=== PATIENT | female | born 1985 | race Caucasian/White ===

== ENCOUNTER → 2016-11-24 | Outpatient (CLI) | payer BC ==
--- NOTE | 2016-11-24 16:20 | CT ---
EXAMINATION TYPE: CT brain wo con DATE OF EXAM: 11/24/2016 4:10 PM COMPARISON: NONE HISTORY: 31-year-old female with headaches TECHNIQUE: Examination was done in axial plane without intravenous contrast. Coronal and sagittal reconstructio ns performed. CT DLP: 981.7 mGycm Automated exposure control for dose reduction was used. FINDINGS: There is no evidence of acute intracranial hemorrhage, acute ischemic changes, mass, mass-effect, or extra-axial fluid collection. There is no effacement of cerebral sulci or basal subarachnoid cister ns. There is no hydrocephalus. There is no midline shift. Luis-white matter distinction is preserv ed. Paranasal sinuses and mastoid air cells are well pneumatized. There is rightward nasal septal deviati on. Patient's gaze is frankly divergent. IMPRESSION: 1. No acute intracranial abnormality seen. 2. Frankly divergent gaze suggests underlying strabismus. Query as to if this could be a source of th e patient's headaches.
== END | disposition home or self-care (01) ==
LOC: RADCTMAIN 15:53
PROVIDERS: ATTEND Family Medicine
DX: R51 Headache (principal)
CPT/HCPCS: 70450

== ENCOUNTER 2017-01-23 20:13 | Emergency (ER) | payer BC ==
[2017-01-23 20:19] VITALS: TEMP 98.4
[2017-01-23] MEDS ORDERED: HYDROmorphone 1 MG/ML 1 ML SYRINGE IVP STA (20:39)
[2017-01-23] MEDS ORDERED: SODIUM CHLORIDE 0.9% 1,000 ML IV ONE (20:39)
[2017-01-23] MEDS ORDERED: ONDANSETRON 4 MG/2 ML VIAL IVP STA (20:39)
[2017-01-23 21:13] LABS: Basophils # (A) 0.1 k/uL (0-0.2); Basophils % (A) 2 %; CH 28.6; CHCM 33.7; Eosinophils # (A) 0.1 k/uL (0-0.7); Eosinophils % (A) 1 %; HCT 39.9 % (34.0-46.0); HDW 2.97; HGB 13.3 gm/dL (11.4-16.0); Luc # (Auto) 0.23; Luc % (Auto) 3; Lymphocytes # (A) 2.4 k/uL (1.0-4.8); Lymphocytes % (A) 35 %; MCH 28.3 pg (25.0-35.0); MCHC 33.2 g/dL (31.0-37.0); MCV 85.3 fL (80.0-100.0); Monocytes # (A) 0.4 k/uL (0-1.0); Monocytes % (A) 5 %; Neutrophils # (A) 3.8 k/uL (1.3-7.7); Neutrophils % (A) 54 %; RBC 4.68 m/uL (3.80-5.40); WBC (Perox) 7.37
--- NOTE | 2017-01-23 21:16 | ED ---
Female Urogenital HPI - General Chief complaint: Urogenital Stated complaint: Abd pain Time Seen by Provider: 01/23/17 20:21 Source: patient, RN notes reviewed Mode of arrival: ambulatory Limitations: no limitations - History of Present Illness Initial comments: Patient is a 31-year-old female with chief complaint of increased pelvic pain. Patient reports that she has a history of cervical cancer and had her cervix removed in July 2016. Patient reports that this was done by his physician Dr. Babb and [facility] in [place]. Patient states that after that was previously place a stent in her cervix in order for her to have a complete menstrual flow. Patient reports that a few days after her stent fell out. She states that since then her physician believes that whenever she has a menstrual cycle the blood is unable to come through the cervix and having normal menstrual cycle. Infected backs up and goes through the fallopian tubes and settles in her abdomen. Patient reports that she's had multiple CAT scans and ultrasounds. Patient states that she takes the few pain medications including tramadol and [place] and even Dilaudid. Patient states that over the past 2 days the pain has been worse and has never been this severe. Patient states that her physician plans to have a D&C completed within the next few weeks in order for her cervix to be more open for the blood supply when she does have a menstrual cycle. Patient denies any fever or chills. She denies any nausea or vomiting. She states that the pain radiates throughout her low entire lower abdomen. She does have a history of ovarian cysts as well She had a computed tomography scan last week which showed acute abnormalities. . - Related Data Home Medications Medication Instructions Recorded Confirmed Pregabalin [Lyrica] 1 tab PO DAILY 01/23/17 01/23/17 Allergies Allergy/AdvReac Type Severity Reaction Status Date / Time NSAIDS (Non-Steroidal AdvReac Abdominal Verified 01/23/17 20:19 Anti-Inflamma Pain Review of Systems ROS Statement: Those systems with pertinent positive or pertinent negative responses have been documented in the HPI. ROS Other: All systems not noted in ROS Statement are negative. Past Medical History Past Medical History: Cancer Additional Past Medical History / Comment(s): cervical cancer History of Any Multi-Drug Resistant Organisms: None Reported Additional Past Surgical History / Comment(s): cervix removed Past Psychological History: Anxiety, Depression Smoking Status: Never smoker Past Alcohol Use History: None Reported Past Drug Use History: None Reported General Exam - General Exam Comments Initial Comments: Patient is a 31-year-old female. Patient does appear to be in significant discomfort. Limitations: no limitations General appearance: alert, in no apparent distress Head exam: Present: atraumatic, normocephalic, normal inspection Eye exam: Present: normal appearance, PERRL, EOMI. Absent: scleral icterus, conjunctival injection, periorbital swelling ENT exam: Present: normal exam, mucous membranes moist Neck exam: Present: normal inspection. Absent: tenderness, meningismus, lymphadenopathy Respiratory exam: Present: normal lung sounds bilaterally. Absent: respiratory distress, wheezes, rales, rhonchi, stridor Cardiovascular Exam: Present: regular rate, normal rhythm, normal heart sounds. Absent: systolic murmur, diastolic murmur, rubs, gallop, clicks GI/Abdominal exam: Present: soft, tenderness (Diffuse lower abdominal tenderness.), normal bowel sounds. Absent: distended, guarding, rebound, rigid External exam: Present: normal external exam Speculum exam: Present: normal speculum exam, other (evidence of scar tissue over cervix. ) Extremities exam: Present: normal inspection, full ROM, normal capillary refill. Absent: tenderness, pedal edema, joint swelling, calf tenderness Back exam: Present: normal inspection Neurological exam: Present: alert, oriented X3, CN II-XII intact Psychiatric exam: Present: normal affect, normal mood Skin exam: Present: warm, dry, intact, normal color. Absent: rash Course Vital Signs 01/23/17 01/23/17 20:15 23:39 Temperature 98.4 F Pulse Rate 101 H 83 Respiratory 20 16 Rate Blood Pressure 133/94 143/73 O2 Sat by Pulse 97 98 Oximetry Medical Decision Making - Medical Decision Making Patient is a 31-year-old female with chief complaint of increased pelvic pain. Patient reports that she has a history of cervical cancer and had her cervix removed in July 2016. Patient reports that this was done by his physician Dr. Babb and [facility] in [place]. Patient states that after that was previously place a stent in her cervix in order for her to have a complete menstrual flow. Patient reports that a few days after her stent fell out. She states that since then her physician believes that whenever she has a menstrual cycle the blood is unable to come through the cervix and having normal menstrual cycle. Infected backs up and goes through the fallopian tubes and settles in her abdomen. Patient reports that she's had multiple CAT scans and ultrasounds. Patient states that she takes the few pain medications including tramadol and [place] and even Dilaudid. Patient states that over the past 2 days the pain has been worse and has never been this severe. Patient states that her physician plans to have a D&C completed within the next few weeks in order for her cervix to be more open for the blood supply when she does have a menstrual cycle. Labwork was reviewed. Patient has no evidence of any acute abnormalities. Patient transvaginal ultrasound shows no evidence of ovarian torsion. However left ovary is not visualized at this time. Patient has no significant tenderness on exam. Patient was given IV fluids and pain management. I discussed the patient needs to follow-up with her specialist. I discussed the repeating a computed tomography scan at this time with the negative lab work is not 100% necessary. I discussed the patient has had multiple CT scans and to avoid the radiation at this time. Return parameters were discussed, and I advised patient to take her pain medications that she has at home. Patient plans to call on Wednesday to schedule an appointment for the D&C and further workup from her cancer specialist. - Lab Data Result diagrams: 01/23/17 20:55 01/23/17 20:55 Lab Results 01/23/17 01/23/17 01/23/17 Range/Units 20:55 20:55 20:55 WBC 7.0 (3.8-10.6) k/uL RBC 4.68 (3.80-5.40) m/uL Hgb 13.3 (11.4-16.0) gm/dL Hct 39.9 (34.0-46.0) % MCV 85.3 (80.0-100.0) fL MCH 28.3 (25.0-35.0) pg MCHC 33.2 (31.0-37.0) g/dL RDW 14.0 (11.5-15.5) % Plt Count 309 (150-450) k/uL Neutrophils % 54 % Lymphocytes % 35 % Monocytes % 5 % Eosinophils % 1 % Basophils % 2 % Neutrophils # 3.8 (1.3-7.7) k/uL Lymphocytes # 2.4 (1.0-4.8) k/uL Monocytes # 0.4 (0-1.0) k/uL Eosinophils # 0.1 (0-0.7) k/uL Basophils # 0.1 (0-0.2) k/uL Sodium 143 (137-145) mmol/L Potassium 4.2 (3.5-5.1) mmol/L Chloride 107 (98-107) mmol/L Carbon Dioxide 26 (22-30) mmol/L Anion Gap 10 mmol/L BUN 11 (7-17) mg/dL Creatinine 0.78 (0.52-1.04) mg/dL Est GFR (MDRD) Af Amer >60 (>60 ml/min/1.73 sqM) Est GFR (MDRD) Non-Af >60 (>60 ml/min/1.73 sqM) Glucose 96 (74-99) mg/dL Calcium 9.6 (8.4-10.2) mg/dL Total Bilirubin 0.5 (0.2-1.3) mg/dL AST 9 L (14-36) U/L ALT 24 (9-52) U/L Alkaline Phosphatase 43 (38-126) U/L Total Protein 7.0 (6.3-8.2) g/dL Albumin 4.2 (3.5-5.0) g/dL Urine Color Urine Appearance (Clear) Urine pH (5.0-8.0) Ur Specific [place] (1.001-1.035) Urine Protein (Negative) Urine Glucose (UA) (Negative) Urine Ketones (Negative) Urine Blood (Negative) Urine Nitrite (Negative) Urine Bilirubin (Negative) Urine Urobilinogen (<2.0) mg/dL Ur Leukocyte Esterase (Negative) Urine RBC (0-5) /hpf Urine WBC (0-5) /hpf Ur Squamous Epith Cells (0-4) /hpf Amorphous Sediment (None) /hpf Urine Bacteria (None) /hpf Hyaline Casts (0-2) /lpf Urine Mucus (None) /hpf Urine HCG, Qual Not Detected (Not Detectd) Trichomonas Ag (Rapid) (Negative) 01/23/17 01/23/17 Range/Units 20:55 21:45 WBC (3.8-10.6) k/uL RBC (3.80-5.40) m/uL Hgb (11.4-16.0) gm/dL Hct (34.0-46.0) % MCV (80.0-100.0) fL MCH (25.0-35.0) pg MCHC (31.0-37.0) g/dL RDW (11.5-15.5) % Plt Count (150-450) k/uL Neutrophils % % Lymphocytes % % Monocytes % % Eosinophils % % Basophils % % Neutrophils # (1.3-7.7) k/uL Lymphocytes # (1.0-4.8) k/uL Monocytes # (0-1.0) k/uL Eosinophils # (0-0.7) k/uL Basophils # (0-0.2) k/uL Sodium (137-145) mmol/L Potassium (3.5-5.1) mmol/L Chloride (98-107) mmol/L Carbon Dioxide (22-30) mmol/L Anion Gap mmol/L BUN (7-17) mg/dL Creatinine (0.52-1.04) mg/dL Est GFR (MDRD) Af Amer (>60 ml/min/1.73 sqM) Est GFR (MDRD) Non-Af (>60 ml/min/1.73 sqM) Glucose (74-99) mg/dL Calcium (8.4-10.2) mg/dL Total Bilirubin (0.2-1.3) mg/dL AST (14-36) U/L ALT (9-52) U/L Alkaline Phosphatase (38-126) U/L Total Protein (6.3-8.2) g/dL Albumin (3.5-5.0) g/dL Urine Color Yellow Urine Appearance Cloudy H (Clear) Urine pH 5.5 (5.0-8.0) Ur Specific [place] 1.012 (1.001-1.035) Urine Protein Negative (Negative) Urine Glucose (UA) Negative (Negative) Urine Ketones Negative (Negative) Urine Blood Small H (Negative) Urine Nitrite Negative (Negative) Urine Bilirubin Negative (Negative) Urine Urobilinogen <2.0 (<2.0) mg/dL Ur Leukocyte Esterase Trace H (Negative) Urine RBC 1 (0-5) /hpf Urine WBC 7 H (0-5) /hpf Ur Squamous Epith Cells 21 H (0-4) /hpf Amorphous Sediment Occasional H (None) /hpf Urine Bacteria Many H (None) /hpf Hyaline Casts 2 (0-2) /lpf Urine Mucus Occasional H (None) /hpf Urine HCG, Qual (Not Detectd) Trichomonas Ag (Rapid) Negative (Negative) - Radiology Data Radiology results: report reviewed Impression is surgical absence of the cervix. Otherwise unremarkable appearance of uterus and endometrium. Normal right ovary. Left ovary is not visualized. Disposition Clinical Impression: Abdominal pain Disposition: HOME SELF-CARE Condition: Good Instructions: Abdominal Pain (ED) Additional Instructions: Follow-up with specialist on Wednesday. Return to the emergency department if any alarming signs or symptoms occur. Take at home pain medication. Referrals: Destinee Vickers DO [Primary Care Provider] - 1-2 days Time of Disposition: 00:18
[2017-01-23 21:20] LABS: Amorphous Sediment,Urine Occasional /hpf; Appearance,Urine Cloudy (Clear); Bacteria,Urine Many /hpf; Bilirubin,Urine Negative (Negative); Glucose,Urine (UA) Negative (Negative); Ketones,Urine Negative (Negative); Leukocyte Esterase,Urine Trace (Negative); Mucus,Urine Occasional /hpf; Nitrite,Urine Negative (Negative); PH, Urine 5.5 (5.0-8.0); Particle Count 5575; Protein,Urine Negative (Negative); RBC,Urine 1 /hpf (0-5); Specific Gravity,Urine 1.012 (1.001-1.035); Squamous Epithelial Cell,Urine 21 /hpf (0-4); UA Billing (MACRO vs. MICRO) MICRO; Urobilinogen,Urine <2.0 mg/dL (<2.0); WBC,Urine 7 /hpf (0-5)
[2017-01-23 21:28] LABS: ALT 24 U/L (9-52); AST 9 U/L (14-36); Alkaline Phosphatase 43 U/L (38-126); Anion Gap 10 mmol/L; Blood Urea Nitrogen 11 mg/dL (7-17); Calcium 9.6 mg/dL (8.4-10.2); Carbon Dioxide 26 mmol/L (22-30); Chloride 107 mmol/L (98-107); Glucose 96 mg/dL (74-99); Non-African American GFR(MDRD) >60 (>60 ml/min/1.73 sqM); Potassium 4.2 mmol/L (3.5-5.1); Sodium 143 mmol/L (137-145); Total Bilirubin 0.5 mg/dL (0.2-1.3)
[2017-01-23 23:40] VITALS: BP 143/73; PULSE 83; RESP 16
--- NOTE | 2017-01-23 23:42 | US ---
EXAM: US Pelvis Complete, Transabdominal. US Pelvis, Transvaginal. CLINICAL HISTORY: Reason: Hx of cervical cancer, cervix removed in July 2016, cerclage with stent put in at that time, patients states stent fell out, no menses since surgery, only intermittant spotting. Currently patient having pelvic pain TECHNIQUE: Real-time transabdominal and transvaginal pelvic ultrasound (complete) with image documentation. Transvaginal imaging was used for better evaluation of the endometrium and adnexa. COMPARISON: None FINDINGS: Uterus: Retroverted uterus with surgically absent cervix. Measures 4.0 x 3.6 x 3.9 cm. Endometrium measures 4 mm. Right ovary: Measures 3.6 x 2.0 x 2.3 cm. Normal appearance with multiple follicles and normal color Doppler flow. Left ovary: Not visualized, likely obscured by overlying bowel gas. Other: No free fluid. IMPRESSION: Surgical absence of the cervix. Otherwise unremarkable appearance of the uterus and endometrium. Normal right ovary. Left ovary not visualized.
[2017-01-24] MEDS ORDERED: HYDROmorphone 1 MG/ML 1 ML SYRINGE IVP STA (00:17)
[2017-01-24] MEDS ORDERED: METOCLOPRAMIDE 5 MG/ML 2 ML VIAL IVP STA (00:18)
[2017-01-25 10:00] LABS: Chlamydia/GC Source Vaginal
== END 2017-01-24 00:40 | disposition home or self-care (01) ==
LOC: EC 20:13
DX: R10.9 Unspecified abdominal pain (principal); Z85.41 Personal history of malignant neoplasm of cervix uteri; Z90.712 Acquired absence of cervix with remaining uterus; Z79.899 Other long term (current) drug therapy
CPT/HCPCS: 36415; 80053; 87591; 87491; 85025; 81001; 81025; 87808; 87070; 93976; 76856; 76830; 99284; 96374 ×2; 96375 ×2; J2765; J2405; J1170 ×2; 87205

== ENCOUNTER 2017-12-19 13:21 | Emergency (ER) | payer BC ==
[2017-12-19 13:27] VITALS: BP 124/88; PULSE 88; RESP 16; TEMP 98.4
--- NOTE | 2017-12-19 13:58 | XR ---
EXAMINATION TYPE: XR foot complete RT , 3 VIEWS DATE OF EXAM ORDERED: 12/19/2017 HISTORY: Pain following trauma. COMPARISON: None. FINDINGS: No fracture, dislocation or other acute osseous lesion is seen. There is a small Achilles spur seen arising from the calcaneus. IMPRESSION: NO ACUTE OSSEOUS LESION.
--- NOTE | 2017-12-19 14:01 | ED ---
Lower Extremity Injury HPI - General Chief Complaint: Extremity Injury, Lower Stated Complaint: Toe Injury Time Seen by Provider: 12/19/17 13:37 Source: patient, RN notes reviewed Mode of arrival: ambulatory Limitations: no limitations - History of Present Illness Initial Comments: 32-year-old female presented emergency from chief complaint of right foot first digit injury. She states that she was going up steps states that she kicked a step and fell forward. She does admit to some bruising to her hansen and knee but states it is not painful on like her right first digit. She states is very swollen, bruised. Patient states the pain is worse with induration better at rest. - Related Data Home Medications Medication Instructions Recorded Confirmed Pregabalin [Lyrica] 1 tab PO DAILY 01/23/17 01/23/17 Previous Rx's Medication Instructions Recorded Acetaminophen-Codeine 300-30mg 1 tab PO Q4H PRN #20 tablet 12/19/17 [Tylenol #3] Allergies Allergy/AdvReac Type Severity Reaction Status Date / Time NSAIDS (Non-Steroidal AdvReac Abdominal Verified 12/19/17 13:27 Anti-Inflamma Pain Review of Systems ROS Statement: Those systems with pertinent positive or pertinent negative responses have been documented in the HPI. ROS Other: All systems not noted in ROS Statement are negative. Past Medical History Past Medical History: Cancer, Thyroid Disorder Additional Past Medical History / Comment(s): cervical cancer History of Any Multi-Drug Resistant Organisms: None Reported Additional Past Surgical History / Comment(s): cervix removed, parathyroid Past Psychological History: Anxiety, Depression Smoking Status: Never smoker Past Alcohol Use History: None Reported Past Drug Use History: None Reported General Exam Limitations: no limitations General appearance: alert, in no apparent distress Respiratory exam: Present: normal lung sounds bilaterally. Absent: respiratory distress, wheezes, rales, rhonchi, stridor Cardiovascular Exam: Present: regular rate, normal rhythm, normal heart sounds. Absent: systolic murmur, diastolic murmur, rubs, gallop, clicks Extremities exam: Present: other (Right foot first digit there is a moderate amount of edema and ecchymosis noted there is tenderness towards the distal phalanx there is no tenderness of MTP region or over the metatarsals, neurovascular intact) Course Vital Signs 12/19/17 13:23 Temperature 98.4 F Pulse Rate 88 Respiratory 16 Rate Blood Pressure 124/88 O2 Sat by Pulse 96 Oximetry Medical Decision Making - Medical Decision Making 32-year-old female presented for right foot injury. Patient has a fracture of her first digit, she'll be discharged at this time with pain medication and follow-up with her primary care physician or orthopedics as needed. Disposition Clinical Impression: Fracture of toe of right foot Disposition: HOME SELF-CARE Condition: Stable Instructions: Toe Fracture (ED) Additional Instructions: Please return to the Emergency Department if symptoms worsen or any other concerns. Prescriptions: Acetaminophen-Codeine 300-30mg [Tylenol #3] 1 tab PO Q4H PRN #20 tablet PRN Reason: pain Referrals: Destinee Vickers DO [Primary Care Provider] - 1-2 days Simeon Parisi MD [STAFF PHYSICIAN] - 1-2 days Time of Disposition: 14:00
== END 2017-12-19 14:34 | disposition home or self-care (01) ==
LOC: EC 13:21
DX: S92.401A Displaced unspecified fracture of right great toe, initial encounter for closed fracture (principal); S80.01XA Contusion of right knee, initial encounter; S80.11XA Contusion of right lower leg, initial encounter; F41.9 Anxiety disorder, unspecified; Z85.41 Personal history of malignant neoplasm of cervix uteri; Z79.899 Other long term (current) drug therapy; Z88.6 Allergy status to analgesic agent; W18.31XA Fall on same level due to stepping on an object, initial encounter; Y92.009 Unspecified place in unspecified non-institutional (private) residence as the place of occurrence of the external cause
CPT/HCPCS: 99283

== ENCOUNTER 2018-05-22 20:27 | Emergency (ER) | payer BC ==
[2018-05-22 20:44] VITALS: BP 118/79; PULSE 72; RESP 18; TEMP 98.9
--- NOTE | 2018-05-22 20:53 | ED ---
Lower Extremity Injury HPI - General Chief Complaint: Extremity Injury, Lower Stated Complaint: Fell/ Foot Injury Time Seen by Provider: 05/22/18 20:46 Source: patient, RN notes reviewed Mode of arrival: wheelchair Limitations: no limitations - History of Present Illness Initial Comments: This is a 33-year-old female who presents to the emergency department with chief complaint of left foot injury. Patient states that [place] She states that she slipped and her foot became stuck under a metal bar. She states there is an instant bruise across the top of her foot. She states she has been bearing weight and ambulating on the foot. She states she believes she may have broke it. She states that last evening she applied ice and she has been taking Tylenol. She denies any ankle pain. Denies any other injuries or trauma. Denies fevers or chills, chest pain or shortness of breath, abdominal pain, nausea or vomiting, numbness or tingling. - Related Data Home Medications Medication Instructions Recorded Confirmed Pregabalin [Lyrica] 1 tab PO DAILY 01/23/17 12/19/17 Previous Rx's Medication Instructions Recorded Acetaminophen-Codeine 300-30mg 1 tab PO Q4H PRN #20 tablet 12/19/17 [Tylenol #3] Allergies Allergy/AdvReac Type Severity Reaction Status Date / Time NSAIDS (Non-Steroidal AdvReac Abdominal Verified 05/22/18 20:44 Anti-Inflamma Pain Review of Systems ROS Statement: Those systems with pertinent positive or pertinent negative responses have been documented in the HPI. ROS Other: All systems not noted in ROS Statement are negative. Past Medical History Past Medical History: Cancer, Thyroid Disorder Additional Past Medical History / Comment(s): cervical cancer History of Any Multi-Drug Resistant Organisms: None Reported Additional Past Surgical History / Comment(s): cervix removed, parathyroid Past Psychological History: Anxiety, Depression Smoking Status: Never smoker Past Alcohol Use History: None Reported Past Drug Use History: None Reported General Exam - General Exam Comments Initial Comments: General: Awake and alert, well-developed; in no apparent distress. HEENT: Head atraumatic, normocephalic. Pupils are equal, round and reactive to light. Extraocular movements intact. Oropharynx moist without erythema or exudate. Neck: Supple. Normal ROM. Cardiovascular: Regular rate and rhythm. No murmurs, rubs or gallops. Chest symmetrical. Respiratory: Lungs clear to auscultation bilaterally. No wheezes, rales or rhonchi. Normal respiratory effort with no use of accessory muscles. Musculoskeletal: Normal range of motion of the left ankle. Patient has difficulty moving the toes due to pain. There is a small contusion, generalized soft tissue swelling and tenderness at the dorsal aspect of the left foot. Sensation is intact. Pedal pulses are 2+ equal and palpable bilaterally. Patient is ambulating. Skin: [place], warm and dry without rashes. Neurological: Alert and oriented x3. CN II-XII grossly intact. Speech is fluent and answers are appropriate. No focal neuro deficits. Psychiatric: Normal mood and affect. No overt signs of depression or anxiety noted. Limitations: no limitations Course Vital Signs 05/22/18 20:43 Temperature 98.9 F Pulse Rate 72 Respiratory 18 Rate Blood Pressure 118/79 O2 Sat by Pulse 98 Oximetry Medical Decision Making - Medical Decision Making This is a 34-year-old female presents to the emergency department with chief complaint of left foot injury. Patient reports slipping and hitting the top of her foot under a metal bar. There is generalized soft tissue swelling and ecchymosis across the dorsal aspect of the left foot. Patient is bearing weight and ambulating. X-ray of the right foot revealed no acute abnormalities. Patient is neurovascularly intact. Recommended rest, ice, elevation and Tylenol as needed for pain. Patient vital signs are stable and she is in no acute distress. She will be discharged home at this time. She is in agreement and voices understanding. All questions answered. - Radiology Data Radiology results: report reviewed, image reviewed X-ray left foot impression: No acute abnormality of the left foot. As read by Dr. Marie. Disposition Clinical Impression: Contusion of left foot Disposition: HOME SELF-CARE Condition: Good Instructions: Foot Contusion (ED) Additional Instructions: Please rest, ice, elevate and take Tylenol as needed for pain. Please follow up with primary care provider within 1-2 days. Return to emergency department if symptoms should worsen or any concerns arise. Is patient prescribed a controlled substance at d/c from ED?: No Referrals: Destinee Vickers DO [Primary Care Provider] - 1-2 days Time of Disposition: 21:37
--- NOTE | 2018-05-22 21:12 | XR ---
EXAMINATION TYPE: XR foot complete LT DATE OF EXAM: 05/22/2018 COMPARISON: NONE HISTORY: Pain TECHNIQUE: 3 views FINDINGS: I see no fracture nor dislocation. Metatarsals are intact. There is an Achilles calcaneal s pur. IMPRESSION: No acute abnormality of the left foot.
== END 2018-05-22 21:45 | disposition home or self-care (01) ==
LOC: EC 20:27
DX: S90.32XA Contusion of left foot, initial encounter (principal); F41.9 Anxiety disorder, unspecified; Z85.41 Personal history of malignant neoplasm of cervix uteri; Z79.899 Other long term (current) drug therapy; Z88.6 Allergy status to analgesic agent; W01.198A Fall on same level from slipping, tripping and stumbling with subsequent striking against other object, initial encounter; Y92.831 Amusement park as the place of occurrence of the external cause
CPT/HCPCS: 99283

== ENCOUNTER 2019-08-02 11:26 | Emergency (ER) | payer BC ==
[2019-08-02 11:36] VITALS: RESP 18
[2019-08-02] MEDS ORDERED: SODIUM CHLORIDE 0.9% 1,000 ML IV STA (12:29)
[2019-08-02] MEDS ORDERED: KETOROLAC 30 MG/ML 1 ML VIAL IVP STA (12:53)
[2019-08-02 12:58] LABS: Appearance,Urine Clear (Clear); Bacteria,Urine Many /hpf; Basophils % (A) 0 %; Bilirubin,Urine Negative (Negative); Blood,Urine Negative (Negative); Color,Urine Light Yellow; Eosinophils # (A) 0.2 k/uL (0-0.7); Eosinophils % (A) 2 %; Glucose,Urine (UA) Negative (Negative); HCT 42.8 % (34.0-46.0); HGB 13.8 gm/dL (11.4-16.0); Ketones,Urine Negative (Negative); Leukocyte Esterase,Urine Trace (Negative); Lymphocytes # (A) 2.6 k/uL (1.0-4.8); Lymphocytes % (A) 34 %; MCH 28.2 pg (25.0-35.0); MCHC 32.3 g/dL (31.0-37.0); MCV 87.2 fL (80.0-100.0); Monocytes # (A) 0.4 k/uL (0-1.0); Monocytes % (A) 5 %; Mucus,Urine Rare /hpf; Neutrophils # (A) 4.5 k/uL (1.3-7.7); Neutrophils % (A) 57 %; Nitrite,Urine Negative (Negative); PH, Urine 5.5 (5.0-8.0); Platelet Count 303 k/uL (150-450); Protein,Urine Negative (Negative); RBC 4.91 m/uL (3.80-5.40); RDW 13.1 % (11.5-15.5); Specific Gravity,Urine 1.014 (1.001-1.035); Squamous Epithelial Cell,Urine 1 /hpf (0-4); Urobilinogen,Urine <2.0 mg/dL (<2.0); WBC 7.9 k/uL (3.8-10.6)
[2019-08-02 13:05] LABS: ALT 20 U/L (9-52); AST 17 U/L (14-36); African American GFR (CKD) >90 (>60 ml/min/1.73 sqM); Albumin 4.4 g/dL (3.5-5.0); Alkaline Phosphatase 38 U/L (38-126); Anion Gap 9 mmol/L; Blood Urea Nitrogen 15 mg/dL (7-17); Calcium 9.4 mg/dL (8.4-10.2); Carbon Dioxide 22 mmol/L (22-30); Chloride 107 mmol/L (98-107); Glucose 88 mg/dL (74-99); Potassium 4.7 mmol/L (3.5-5.1); Sodium 138 mmol/L (137-145); Total Bilirubin 0.9 mg/dL (0.2-1.3); Total Protein 7.3 g/dL (6.3-8.2)
--- NOTE | 2019-08-02 14:16 | ED ---
General Adult HPI - General Chief complaint: Recheck/Abnormal Lab/Rx Stated complaint: All over body pain Time Seen by Provider: 08/02/19 11:38 Source: patient Mode of arrival: wheelchair Limitations: no limitations - History of Present Illness Initial comments: Patient is a 34-year-old female presenting to the emergency Department with complaints of all over body aches that have been increasing in the last 3 days. Patient has past medical history of fibromyalgia and hyperparathyroidism. Patient is set to have surgery to remove 2 small tumors on her parathyroid gland in September of this year. Patient has been having increase in body aches over the past 2 days. She is unsure if the weather changing is contributing to this. Patient denies fever, chills, nausea, vomiting. Patient denies any trauma or injuries to her body. Patient has no other complaints at this time. Upon arrival to ER, vital signs are stable. - Related Data Home Medications Medication Instructions Recorded Confirmed ALPRAZolam [Xanax] 0.5 mg PO DAILY PRN 08/02/19 08/02/19 Pregabalin [Lyrica] 300 mg PO HS 08/02/19 08/02/19 Previous Rx's Medication Instructions Recorded predniSONE 20 mg PO BID 5 Days #10 tab 08/02/19 Allergies Allergy/AdvReac Type Severity Reaction Status Date / Time NSAIDS (Non-Steroidal AdvReac Abdominal Verified 08/02/19 11:51 Anti-Inflamma Pain Review of Systems ROS Statement: Those systems with pertinent positive or pertinent negative responses have been documented in the HPI. ROS Other: All systems not noted in ROS Statement are negative. Past Medical History Past Medical History: Cancer, Thyroid Disorder Additional Past Medical History / Comment(s): cervical cancer History of Any Multi-Drug Resistant Organisms: None Reported Additional Past Surgical History / Comment(s): cervix removed, parathyroid Past Psychological History: Anxiety, Depression Smoking Status: Never smoker Past Alcohol Use History: None Reported Past Drug Use History: None Reported General Exam - General Exam Comments Initial Comments: GENERAL: Well-appearing, well-nourished and in no acute distress. Appears mildly uncomfortable. HEAD: Atraumatic, normocephalic. EYES: Pupils equal round and reactive to light, extraocular movements intact, sclera anicteric, conjunctiva are normal. ENT: TMs normal, nares patent, oropharynx clear without exudates. Moist mucous m embranes. NECK: Normal range of motion, supple without lymphadenopathy or JVD. LUNGS: Breath sounds clear to auscultation bilaterally and equal. No wheezes rales or rhonchi. HEART: Regular rate and rhythm without murmurs, rubs or gallops. ABDOMEN: Soft, nontender, normoactive bowel sounds. No guarding, no rebound. No masses appreciated. : Deferred EXTREMITIES: Normal range of motion, no pitting or edema. No clubbing or cyanosis. No significant pain with palpation of all 4 extremities. NEUROLOGICAL: Cranial nerves II through XII grossly intact. Normal speech, normal gait. PSYCH: Normal mood, normal affect. SKIN: Warm, Dry, normal turgor, no rashes or lesions noted. Limitations: no limitations Course Vital Signs 08/02/19 08/02/19 11:31 14:47 Temperature 98.9 F 99.1 F Pulse Rate 87 71 Respiratory 18 18 Rate Blood Pressure 127/85 125/92 O2 Sat by Pulse 98 96 Oximetry Medical Decision Making - Medical Decision Making Patient is a 34-year-old female presenting with generalized body aches 3 days. Patient has history of fibromyalgia and hyperparathyroidism. Patient is set to have 2 small tumors removed on her parathyroid gland in September. Vital signs are stable upon arrival. Patient denies fever, chills, nausea, vomiting, abdominal pain. CBC, CMP, TSH levels are all normal today. UA is normal. Patient was given fluids and pain medication. Patient reports improvement in symptoms. Patient is stable for discharge at this time. Patient be given short course of steroids to decrease inflammation. 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 Patient is agreement with this plan of care. Return parameters were discussed with the patient she verbalized understanding. Case discussed with Dr. Howard. - Lab Data Result diagrams: 08/02/19 12:37 08/02/19 12:37 Lab Results 08/02/19 08/02/19 08/02/19 Range/Units 12:37 12:37 12:37 WBC 7.9 (3.8-10.6) k/uL RBC 4.91 (3.80-5.40) m/uL Hgb 13.8 (11.4-16.0) gm/dL Hct 42.8 (34.0-46.0) % MCV 87.2 (80.0-100.0) fL MCH 28.2 (25.0-35.0) pg MCHC 32.3 (31.0-37.0) g/dL RDW 13.1 (11.5-15.5) % Plt Count 303 (150-450) k/uL Neutrophils % 57 % Lymphocytes % 34 % Monocytes % 5 % Eosinophils % 2 % Basophils % 0 % Neutrophils # 4.5 (1.3-7.7) k/uL Lymphocytes # 2.6 (1.0-4.8) k/uL Monocytes # 0.4 (0-1.0) k/uL Eosinophils # 0.2 (0-0.7) k/uL Basophils # 0.0 (0-0.2) k/uL Sodium 138 (137-145) mmol/L Potassium 4.7 (3.5-5.1) mmol/L Chloride 107 (98-107) mmol/L Carbon Dioxide 22 (22-30) mmol/L Anion Gap 9 mmol/L BUN 15 (7-17) mg/dL Creatinine 0.61 (0.52-1.04) mg/dL Est GFR (CKD-EPI)AfAm >90 (>60 ml/min/1.73 sqM) Est GFR (CKD-EPI)NonAf >90 (>60 ml/min/1.73 sqM) Glucose 88 (74-99) mg/dL Calcium 9.4 (8.4-10.2) mg/dL Total Bilirubin 0.9 (0.2-1.3) mg/dL AST 17 (14-36) U/L ALT 20 (9-52) U/L Alkaline Phosphatase 38 (38-126) U/L Total Protein 7.3 (6.3-8.2) g/dL Albumin 4.4 (3.5-5.0) g/dL TSH 2.610 (0.465-4.680) mIU/L Urine Color Urine Appearance (Clear) Urine pH (5.0-8.0) Ur Specific [place] (1.001-1.035) Urine Protein (Negative) Urine Glucose (UA) (Negative) Urine Ketones (Negative) Urine Blood (Negative) Urine Nitrite (Negative) Urine Bilirubin (Negative) Urine Urobilinogen (<2.0) mg/dL Ur Leukocyte Esterase (Negative) Urine WBC (0-5) /hpf Ur Squamous Epith Cells (0-4) /hpf Urine Bacteria (None) /hpf Urine Mucus (None) /hpf Urine HCG, Qual Not Detected (Not Detectd) 08/02/19 Range/Units 12:37 WBC (3.8-10.6) k/uL RBC (3.80-5.40) m/uL Hgb (11.4-16.0) gm/dL Hct (34.0-46.0) % MCV (80.0-100.0) fL MCH (25.0-35.0) pg MCHC (31.0-37.0) g/dL RDW (11.5-15.5) % Plt Count (150-450) k/uL Neutrophils % % Lymphocytes % % Monocytes % % Eosinophils % % Basophils % % Neutrophils # (1.3-7.7) k/uL Lymphocytes # (1.0-4.8) k/uL Monocytes # (0-1.0) k/uL Eosinophils # (0-0.7) k/uL Basophils # (0-0.2) k/uL Sodium (137-145) mmol/L Potassium (3.5-5.1) mmol/L Chloride (98-107) mmol/L Carbon Dioxide (22-30) mmol/L Anion Gap mmol/L BUN (7-17) mg/dL Creatinine (0.52-1.04) mg/dL Est GFR (CKD-EPI)AfAm (>60 ml/min/1.73 sqM) Est GFR (CKD-EPI)NonAf (>60 ml/min/1.73 sqM) Glucose (74-99) mg/dL Calcium (8.4-10.2) mg/dL Total Bilirubin (0.2-1.3) mg/dL AST (14-36) U/L ALT (9-52) U/L Alkaline Phosphatase (38-126) U/L Total Protein (6.3-8.2) g/dL Albumin (3.5-5.0) g/dL TSH (0.465-4.680) mIU/L Urine Color Light Yellow Urine Appearance Clear (Clear) Urine pH 5.5 (5.0-8.0) Ur Specific [place] 1.014 (1.001-1.035) Urine Protein Negative (Negative) Urine Glucose (UA) Negative (Negative) Urine Ketones Negative (Negative) Urine Blood Negative (Negative) Urine Nitrite Negative (Negative) Urine Bilirubin Negative (Negative) Urine Urobilinogen <2.0 (<2.0) mg/dL Ur Leukocyte Esterase Trace H (Negative) Urine WBC 3 (0-5) /hpf Ur Squamous Epith Cells 1 (0-4) /hpf Urine Bacteria Many H (None) /hpf Urine Mucus Rare H (None) /hpf Urine HCG, Qual (Not Detectd) Disposition Clinical Impression: Generalized body aches Disposition: HOME SELF-CARE Condition: Stable Instructions (If sedation given, give patient instructions): Fibromyalgia (ED) Additional Instructions: Please return to the Emergency Department if symptoms worsen or any other concerns. Follow-up with PCP as discussed. Prescriptions: predniSONE 20 mg PO BID 5 Days #10 tab Is patient prescribed a controlled substance at d/c from ED?: No Referrals: Destinee Vickers DO [Primary Care Provider] - 1-2 days
[2019-08-02] MEDS ORDERED: MORPHINE SULFATE 4 MG/ML SYRINGE IVP STA (14:25)
[2019-08-02] MEDS ORDERED: ONDANSETRON 4 MG/2 ML VIAL IVP STA (14:25)
[2019-08-02 14:48] VITALS: BP 125/92; PULSE 71; TEMP 99.1
== END 2019-08-02 14:48 | disposition home or self-care (01) ==
LOC: EC 11:26
DX: R52 Pain, unspecified (principal); D49.7 Neoplasm of unspecified behavior of endocrine glands and other parts of nervous system; M79.7 Fibromyalgia; Z88.6 Allergy status to analgesic agent; Z79.899 Other long term (current) drug therapy; Z85.41 Personal history of malignant neoplasm of cervix uteri; Z90.712 Acquired absence of cervix with remaining uterus; Z98.890 Other specified postprocedural states
CPT/HCPCS: 36415; 80053; 84443; 85025; 81001; 81025; 99283; 96374; 96375 ×2; 96361; J2270; J2405; J1885